=== PATIENT | female | born 1990 | race Caucasian/White ===

== ENCOUNTER 2022-06-19 16:25 | Emergency (ER) | payer SELFPAY ==
[~2022-06-19] VITALS: Ht 172.7 cm; Wt 61.4 kg
[2022-06-19] MEDS ORDERED: LIDOCAINE 1% HCL (LOCAL ANESTH.) INJ 20ML MDV IJ ONE (19:45)
[2022-06-19 20:07] VITALS: BP 98/67
[2022-06-19] MEDS ORDERED: CLIN-188 PO (20:35)
[2022-06-19] MEDS ORDERED: KETOROLAC TROMETH 60MG/2ML VIAL IM ONE (20:45)
[2022-06-19] MEDS ORDERED: CLINDAMYCIN HCL 150 MG CAP PO ONE (20:45)
== END 2022-06-19 21:07 | disposition home or self-care (01) ==
LOC: ER 16:25
DX: N76.4 Abscess of vulva (principal); Z88.2 Allergy status to sulfonamides; Z88.6 Allergy status to analgesic agent
CPT/HCPCS: 56405; 96372; 99283; J1885; J2001